=== PATIENT | male | born 1950 | race Caucasian/White ===

== ENCOUNTER 2016-03-03 14:45 | Emergency (ER) | payer OTHER ==
[~2016-03-03] VITALS: Ht 182.9 cm; Wt 103.4 kg
[2016-03-03 16:01] VITALS: BP 166/82
[2016-03-03] MEDS ORDERED: SIMVASTATIN20 M2 PO (16:31)
--- NOTE | 2016-03-03 16:35 | ED NECK/BACK PAIN COMPLAINT ---
History of Present Illness General Chief Complaint: Low Back Pain/Injury Stated Complaint: LBP Source: patient Exam Limitations: no limitations Vital Signs & Intake/Output Vital Signs & Intake/Output Vital Signs Date Time Temp Pulse Resp B/P Pulse O2 O2 Flow FiO2 Ox Delivery Rate 03/03 1601 98.3 102 20 166/82 97 Room Air Room Air Allergies Coded Allergies: Sulfa (Sulfonamide Antibiotics) (Intermediate, RASH 03/03/16) Reconcile Medications Cyclobenzaprine HCl 5 MG TABLET 1 TAB PO TIDPRN PRN MUSCLE SPASMS Naproxen (Naprosyn) 500 MG TABLET 1 TAB PO BID PRN BACK PAIN Simvastatin (Simvastatin*) 20 MG TABLET 1 TAB PO QPM CHOLESTEROL (Reported) Triage Note: PT TO ED S/P "STRAINED BACK GETTING IN AND OUT OF MY CAR ON SUNDAY, ALSO WAS ON MY FEET ALL DAY AT WORK ON SUNDAY". HX ?HERNIATED DISC. Triage Nurses Notes Reviewed? yes Onset: Gradual Duration: week(s): (1) Timing: remote history Quality/Severity: moderate Location: lumbar spine, paraspinous muscles Radiation: buttocks, upper legs, lower legs Context: turning/bending Method of Injury: twisted Loss of Consciousness: no loss of consciousness Modifying Factors: immobilization HPI: Patient is a 65-year-old male presenting to the emergency department to complaint of left low back pain has been going on for the past one week. He reports that he felt a pull when he got up quickly and since then has been hurting him. Pain is moderate now radiating down the left side of his buttock and into the upper part of his left leg. Denies any lower extremity weakness. Pain is worse if he tries to stand up straight or bending or moving. He's been taking Advil with some relief. Denies any urinary incontinence or retention. Denies any lower extremity weakness. History of low back pain but none this bad. He reinjured it again about 5 days after the initial injury. Denies any nausea vomiting fevers and chills chest pain or shortness of breath. (HUSSEIN CAMPUZANO,RENETTA) Past History Travel History Traveled to [place] past 21 day No Medical History Any Pertinent Medical History? see below for history Neurological: NONE EENT: NONE Cardiovascular: hyperlipidemia Respiratory: NONE Gastrointestinal: GERD Hepatic: NONE Renal: NONE Musculoskeletal: C6 C7 COMPRESSION SHINGLES JULY 2015 Psychiatric: NONE Endocrine: NONE Blood Disorders: anemia Cancer(s): melanoma PROCED TECH/Reproductive: NONE Surgical History Surgical History: non-contributory Psychosocial History What is your primary language German Tobacco Use: Quit >30 days ago ETOH Use: denies use Illicit Drug Use: denies illicit drug use Family History Hx Contributory? No (RENETTA BARILLAS) Review of Systems Review of Systems Constitutional: Reports: no symptoms. Comments Review of systems: See HPI, All other systems negative. Constitutional, no chills fever or weight loss HEENT: No visual changes no sore throat no congestion Cardiovascular: No chest pain ,palpitation Skin, no jaundice no rashes Respiratory: No dyspnea cough sputum or hemoptysis GI: No nausea no vomiting : No dysuria No hematuria Muscle skeletal: no neck pain, Neurologic: No numbnesS Psych: No stress anxiety or depression,. Heme/endocrine: No bruising no bleeding no polyuria or polydipsia Immunology: No splenectomy or history of AIDS (RENETTA BARILLAS) Physical Exam Physical Exam General Appearance: well developed/nourished, no apparent distress, alert, awake , comfortable Neck: normal inspection, supple, full range of motion, normal alignment Comments: Well-developed well-nourished person in no acute distress HEENT: Pupils equally round and reactive to light and accommodation. Nose is atraumatic. Neck: Supple, no lymphadenopathy, normal range of motion without pain or tenderness. No C-spine tenderness. Back: Tenderness to palpation in the left lumbar paraspinal region. No bony tenderness. Positive straight leg raise on the left, modified. Limited range of motion of the back secondary to pain especially with forward flexion and back extension. Cardiovascular: Regular rate and rhythms no murmurs rubs or gallops, normal JVP Respiratory: Chest nontender. No respiratory distress.breath sounds clear to auscultation bilaterally Extremity: No edema, no calf tenderness to palpation, normal and equal pulses. Neuro: Alert oriented x3, motor sensory normal, patellar reflexes are 2+ bilaterally.. Skin: No appreciable rash on exposed skin, skin is warm and dry. Psych: Mood and affect is normal, memory and judgment is normal. (RENETTA BARILLAS) Progress Differential Diagnosis: cauda equina syn, herniated disc, myofascial strain, pyelo/UTI, sciatica, spinal cord inj Plan of Care: Current Medications Sig/Jayant Start time Last Medication Dose Stop Time Status Admin Ketorolac 30 MG ONE ONE 03/03 1700 UNVr Tromethamine 03/03 170 (Toradol) Comments: Decline pain medication on arrival. Patient likely has sciatica. Patient will be treated symptomatically with anti-inflammatory muscle relaxer. D/W DR GONZALEZ AND HE AGREES WITH PLAN. (RENETTA BARILLAS) Departure Departure Time of Disposition: 1648 Disposition: HOME OR SELF CARE Condition: Stable Clinical Impression Primary Impression: Sciatica Qualifiers: Laterality: left Qualified Code: M54.32 - Sciatica, left side Referrals: ANGELINE MANCILLA,JESSIE Xie (PCP/Family) Additional Instructions: Follow-up with your primary care physician call to make an appointment. Avoid heavy lifting or sudden movements. Take naproxen and Flexeril as prescribed. Apply warm compresses to affected area. Avoid remaining in the same position for long periods of time. Departure Forms: Customer Survey General Discharge Information Prescriptions: Current Visit Scripts Cyclobenzaprine HCl 1 TAB PO TIDPRN PRN MUSCLE SPASMS #20 TAB Naproxen (Naprosyn) 1 TAB PO BID PRN BACK PAIN #30 TAB (RENETTA BARILLAS) PA/MANAGER MATERIALS MANAGEMENT Co-Sign Statement Statement: ED Attending supervision documentation- [] I saw and evaluated the patient. I have also reviewed all the pertinent lab results and diagnostic results. I agree with the findings and the plan of care as documented in the PA's/MANAGER MATERIALS MANAGEMENT's documentation. [x] I have reviewed the ED Record and agree with the PA's/MANAGER MATERIALS MANAGEMENT's documentation. [] Additions or exceptions (if any) to the PAs/MANAGER MATERIALS MANAGEMENT's note and plan are summarized below: [] (CARLOS MANCILLA,ROBERT Riley
[2016-03-03] MEDS ORDERED: NAPROSYN500 M1 PO (16:51)
[2016-03-03] MEDS ORDERED: CYCLOBENZAPRINE5 M2 PO (16:51)
== END 2016-03-03 16:59 ==
LOC: ERH 14:45
DX: M54.42 Lumbago with sciatica, left side (principal)
CPT/HCPCS: 96372; J1885